=== PATIENT | male | born 1980 | race Two or more races ===

== ENCOUNTER 2018-03-15 16:44 | Emergency (ER) | payer MEDICAID ==
[~2018-03-15] VITALS: Ht 172.7 cm; Wt 90.7 kg
[2018-03-15 17:08] VITALS: BP 147/94
== END 2018-03-15 20:22 | disposition left against medical advice (07) ==
LOC: ER 16:51
DX: R51 Headache (principal); R07.81 Pleurodynia; Z53.21 Procedure and treatment not carried out due to patient leaving prior to being seen by health care provider
CPT/HCPCS: 70450; 71101

== ENCOUNTER 2018-03-16 10:28 | Emergency (ER) | payer MEDICAID ==
[~2018-03-16] VITALS: Ht 172.7 cm; Wt 86.2 kg
[2018-03-16 11:16] VITALS: BP 115/85
[2018-03-16] MEDS ORDERED: KETOROLAC TROMETH 60MG/2ML VIAL IM ONE (12:00)
== END 2018-03-16 12:18 | disposition home or self-care (01) ==
LOC: ER 10:28
DX: R07.81 Pleurodynia (principal); R51 Headache; V43.52XA Car driver injured in collision with other type car in traffic accident, initial encounter; Y93.89 Activity, other specified; Y99.8 Other external cause status; Y92.410 Unspecified street and highway as the place of occurrence of the external cause
CPT/HCPCS: 99283; J1885